=== PATIENT | female | born 1965 | race Caucasian/White ===

== ENCOUNTER 2022-07-10 07:01 | Outpatient (CLI) | payer BC, SELFPAY ==
--- NOTE | 2022-07-10 07:15 | CRLHL7_ITS ---
For Patients: As a result of the Century Cures Act, medical imaging exams and procedure reports are released immediately into your electronic medical record. You may view this report before your referring provider. If you have questions, please contact your health care provider. INDICATION: Abdominal pain TECHNIQUE: Ultrasound abdomen limited. Sonographic images of the right upper quadrant were obtained using schuler-scale and color Doppler images. COMPARISON: None FINDINGS: Liver: Normal in size and echotexture. No masses. No intrahepatic biliary dilatation. Gallbladder: No stones or sludge. Normal wall thickness. No pericholecystic fluid. Common bile duct: 4 mm. Pancreas: Normal. Right kidney: 9.8 cm. Normal echotexture and cortex. No masses, stones, or hydronephrosis. Vasculature: Proximal abdominal aorta and IVC are normal. IMPRESSION: Unremarkable right upper quadrant ultrasound. Dictated by Tres Guzman MD @ 07/10/2022 9:33:56 AM (Electronically Signed)
== END 2022-07-10 07:02 | disposition home or self-care (01) ==
LOC: US 07:03
PROVIDERS: PCP Physician Assistant; Visit Provider Physician Assistant
DX: R10.9 Unspecified abdominal pain (principal)
CPT/HCPCS: 76705

== ENCOUNTER 2023-06-01 12:31 | Emergency (ER) | payer BC, SELFPAY ==
[2023-06-01 13:01] VITALS: BP 118/75; PULSE 108; RESP 18; TEMP 36.5; O2SAT 97; BMI 18.7
--- NOTE | 2023-06-01 13:10 | CRLHL7_ITS ---
For Patients: As a result of the Century Cures Act, medical imaging exams and procedure reports are released immediately into your electronic medical record. You may view this report before your referring provider. If you have questions, please contact your health care provider. INDICATION: Right foot pain TECHNIQUE: X-ray right foot, three views COMPARISON: None available FINDINGS: The alignment is normal. Negative for acute fracture or dislocation. Overlying soft tissues within normal limits. No radiopaque foreign body is seen. IMPRESSION: Negative for acute fracture or dislocation. Dictated by Leticia Dixon MD @ 06/01/2023 2:16:20 PM (Electronically Signed)
--- NOTE | 2023-06-01 14:36 | ED_ITS ---
HPI - Extremity Injury (Lower) General Chief Complaint: Extremity Pain/Injury, Lower Stated Complaint: right foot injury Time Seen by Provider: 06/01/23 13:32 History of Present Illness HPI Narrative: Patient is a 57-year-old woman who lives locally. She was locked out of her home yesterday and kicked on the door to try to get a and using the medial aspect of her right foot. She has pain over the right mid foot medially. She has some swelling but no bruising no skin breakdown. She is having hard time walking on the foot and is having difficulty with discomfort which he rates 6/10. No other injuries. No ankle pain knee pain no toe pain. Again no breakdown of her skin. Review of Systems Status of ROS: Reports: 10 or more systems reviewed and unremarkable except as noted in History and below Exam Narrative: Exam Narrative: EXAM GENERAL: Patient appears comfortable and well. EYES: No scleral icterus. LYMPH: No supraclavicular or cervical lymphadenopathy. SKIN: Visible skin seen during exam normal or with benign process only. EXT: No dependent lower extremity pedal edema. Mild swelling of the right midfoot. Minimal pain to palpation no obvious deformities. No bruising. ABD: Soft, non tender, non distended. PSYCH: Good eye contact, speech is not pressured. Const: Vital Signs, click to edit/add: Vital Signs - 24 hr 06/01/23 13:01 Temperature 97.7 F Pulse Rate [Pulse Oximeter] 108 H Respiratory Rate 18 Blood Pressure [Ri ght Upper Arm] 118/75 Pulse Oximetry 97 Oxygen Delivery Me thod Room Air Course Course ED Course: Patient seen and examined. X-ray reviewed. Vital Signs Vital signs: Initial Vital Signs Temperature 97.7 F 06/01/23 13:01 Temperature Source Temporal Artery Scan 06/01/23 13:01 Pulse Rate 108 H 06/01/23 13:01 Respiratory Rate 18 06/01/23 13:01 Blood Pressure 118/75 06/01/23 13:01 Blood Pressure Mean 89 06/01/23 13:01 Pulse Oximetry 97 06/01/23 13:01 Oxygen Delivery Method Room Air 06/01/23 13:01 Vital Signs Temperature 97.7 F 06/01/23 13:01 Pulse Rate 108 H 06/01/23 13:01 Respiratory Rate 18 06/01/23 13:01 Blood Pressure 118/75 06/01/23 13:01 Pulse Oximetry 97 06/01/23 13:01 Oxygen Delivery Method Room Air 06/01/23 13:01 Temperature 97.7 F 06/01/23 13:01 Pulse Rate 108 H 06/01/23 13:01 Respiratory Rate 18 06/01/23 13:01 Blood Pressure 118/75 06/01/23 13:01 Pulse Oximetry 97 06/01/23 13:01 Oxygen Delivery Method Room Air 06/01/23 13:01 MDM - Extremity Injury (Lower) MDM Narrative Medical decision making narrative: Patient is a 57-year-old woman who presents after kicking door with her right foot yesterday. X-ray is negative both upon my review and radiology's review. She has finite pain in the medial aspect of her right foot. No other palpable abnormalities. This time I have offered her stiff shoe Tylenol Motrin ice and advancement of her activity as tolerated. Differential Diagnosis Differential diagnosis: Likely ankle sprain and strain, acute internal derangement of knee, fracture of toe and ankle fracture Discharge Plan Discharge Clinical Impression: Contusion Patient Disposition: Home, Self-Care Condition: Stable Instructions: Foot Contusion (ED) Additional Instructions: Stiff shoe Tylenol Motrin Ice Advancement of activity as tolerated Follow-up with your doctor in the next week if not improved. Activity Level: No Restrictions Discharge Diet: Regular Follow Up/Referrals: Mine Phillips PA [Primary Care Provider] - Stand Alone [facility] Inst[facility]
== END 2023-06-01 15:09 | disposition home or self-care (01) ==
LOC: ED 14:50
PROVIDERS: Emergency Provider Internal Medicine
DX: S90.31XA Contusion of right foot, initial encounter (principal); W22.8XXA Striking against or struck by other objects, initial encounter
CPT/HCPCS: 73630; 99283

== ENCOUNTER 2025-01-17 14:41 | Emergency (ER) | payer BC, SELFPAY ==
--- OUTSIDE RECORDS SUMMARY | 2025-01-17 14:44 | XMS_ITS | Clinical Summary ---
Author Organization [employer] [facility] [employer] Address [address] [place] [id number] Care Team Providers Care Clinical Resource Manager Name Role Phone Corey Nelson MD Unavailable [phone] Nery Louie Primary Care Provider [phone]- [phone] Allergies Active Allergy Reactions Criticality Noted Date Comments Venom-Honey Bee Anaphylaxis High 04/11/2021 Doxycycline Hives 01/19/2019 Levofloxacin Myalgia 10/17/2021 Penicillins Cardiac Arrest High almost twice Medications NebulizerIndicat ions:COPD with chronic bronchitis (HC) Nebulizer, disposable neb kit x 4, reuseable neb kit x 1, mask x 1, filters x 1. Frequency of use: daily; Medication: albuterol Length of need: prn months 1 Device 09/21/19 21 Active loperamide (Imodium A-D) 2 mg capsuleIndicatio ns:Irritable bowel syndrome with diarrhea Take 2 capsules (4mg) orally with 1st loose stool, then 1 capsule (2mg) with other loose stools. Max 16 mg in 24 hrs. 40 Capsule 2 01/07/20 24 Active EPINEPHrine (EPIPEN) 0.3 mg/0.3 mL auto-injectorInd ications:Bee sting allergy Inject 0.3 mg intramuscular one time if needed for Allergic Reaction. Contact 911 and be transported to the ER if used. 2 Each 1 01/07/20 24 Active betamethasone dipropionate 0.05 % creamIndications :Chronic eczema Apply thin layer to eczema area(s) of skin (arms, legs) twice daily as needed. Use for more severe outbreak. 45 g 1 12/02/19 25 Active betamethasone dipropionate 0.05 % ointmentIndicati ons:Chronic eczema Apply thin layer to eczema areas (arms,legs) twice daily as needed. Use for more severe outbreak. 45 g 2 12/02/19 25 Active budesonide-formo teroL (Symbicort) 80-4.5 mcg/actuation (80-4.5 mcg each actuation) inhalerIndicatio ns:COPD with chronic bronchitis (HC) Inhale 2 Puffs by mouth two times daily. 10.2 g 11 12/02/19 25 Active albuterol HFA 90 mcg/actuation inhalerIndicatio ns:COPD with chronic bronchitis (HC) Inhale 1-2 Puffs by mouth every 4 hours if needed for Shortness Of Breath or Wheezing. 1 Each 11 12/02/19 25 Active albuterol-ipratr opium (2.5-0.5 mg) in 3 mL NEBULIZATION solutionIndicati ons:COPD exacerbation (HC) Inhale 3 mL via a nebulizer 4 times daily if needed for Shortness Of Breath or Wheezing. 180 mL 5 12/02/19 25 Active alendronate (FOSAMAX) 70 mg tabletIndication s:Age-related osteoporosis without current pathological fracture Take 1 Tablet (70 mg) by mouth once a week in the morning. Take on empty stomach with full glass of water. Do not lie down for 1 hr. 12 Tablet 3 01/07/20 25 Active medication order composerIndicati ons:Chronic eczema Equal parts aquaphor and .1% triamcinolone ointment. Apply mixture to eczema areas (arms/legs) 2-3x/day. 60 g 2 11/10/19 19 025 Discontin ued(*Med complete/ Regimen complete/ Level of care change) azithromycin 250 mg tabletIndication s:COPD exacerbation (HC) Take 500 mg (2 tabs) by mouth on day 1, then 250 mg (1 tab) daily for days 2-5. 6 Tablet 12/02/19 25 025 Discontin ued(*Med complete/ Regimen complete/ Level of care change) predniSONE 20 mg tabletIndication s:COPD exacerbation (HC) Take 40 mg qd for 5 days, then 20 mg qd for 3 days, then 10 mg qd for 4 days. 15 Tablet 12/02/19 25 025 Discontin ued(*Med complete/ Regimen complete/ Level of care change) Active Problems Problem Noted Date Diagnosed Date Age-related osteoporosis wit hout current pathological fracture 12/27/2024 Pap smear for cervical cancer screening 01/19/20 24 Overview (01/19/2024): 12/2023 NIL/HPV negative. Plan: Pap/HPV due 12/2028. H. pylori infection 11/29/2021 Overview (11/29/2021): EGD 10/2021 h pylori, recommend follow up visit to discuss treatment COPD with chronic bronchitis 03/18/2019 Major depressive disorder, recurrent, mild 09/02 Anxiety disorder 09/02/2016 Tobacco use disorder 07/28/2012 Eczema 07/28/2012 LATTICE DEGENERATION-OU 03/28/2002 Resolved Problems Problem Noted Date Diagnosed Date Resolved Date Routine adult health maintenance 01/14/2017 01/06/2025 Overview (01/14/2017): Colonoscopy 12/2016 normal repeat in 10 years Osteopenia 07/11/2015 01/06/2025 Overview (07/11/2015): July 2015. Repeat bone density in 2-3 years. Headache 06/06/2015 06/29/2015 Fall 06/06/2015 06/29/2015 Arm pain, left 06/06/2015 06/29/2015 RENAL FAILURE, ACUTE NEC 10/18/200104/2015 Encounters Date Type Department Care Team Description 01/17/2025 Nurse Triage [facility] [address] [facility] [place] [address] Nery Louie PA Pain 01/17/2025 Telephone [facility] [address] [place] [address] Nery Louie PA Error-please disregard 01/06/2025 8:10 AM CDT Phone Office Visit [facility] [address] [place] [address] Nery Louie PA Results (Dexa and tx for osteoporosis); Phone Visit (No vitals taken) 12/27/2024 Telephone [facility] [address] [place] [address] Nery Louie PA Results 12/19/2024 Telephone [facility] [address] [place] [address] Nery Louie PA Results (Bone Scan 12/12) 12/12/2024 8:30 AM CDT Ancillary Procedure [facility] [address] [place] [address] 12/12/2024 Travel 12/01/2024 9:00 AM CDT Ancillary Procedure [address] [address] 12/01/2024 8:45 AM CDT Ancillary Procedure [address] [address] 12/01/2024 8:30 AM CDT Ancillary Procedure [facility] [address] [place] [address] 12/01/2024 7:50 AM CDT Office Visit [facility] [address] [place] [address] Nery Louie PA Cough (And out of breath a lot-could not refill inhalers); Leg Pain/problem (Both legs-left worse than right-numb or tingling in the mornings); Urinary Problem (Having frequency and urgency at night) 12/01/2024 Travel from Last 3 Months Immunizations Immunization Administration Dates Next Due Hepatitis B (Adult) 10/15/2012,11/03/2006,2006 Influenza, IIV4 02/04/2018 Pneumococcal Conj 20-valent (Prevnar 20) 024 Tdap 02/04/2018,01/12/2008 Family History Medical History Relation Name Comments Heart Disease Brother 1 Aleksandar Heart Disease Brother 2 Parish Alcohol/Drug Father alcohol Allergies Father Cancer Father of lung ca ncer Other Father glaucoma Unknown Maternal Grandfather Unknown Maternal Grandmother Allergies Mother Heart Disease Mother had 3 heart at [facility] Hypertension Mother Unknown Paternal Grandfather Unknown Paternal Grandmother Heart Disease Sister 1 Tasneem Cancer-breast Sister 2 Bailee in early 50's Heart Disease Sister 2 Bailee Anesthesia Problem No Family History Blood Disease No Family History Relation Name Status Comments Brother 1 Aleksandar Alive Brother 2 Parish Alive Father (Age 76) 5 yea rs ago Maternal Grandfather Maternal Grandmother Mother Alive Paternal Grandfather Paternal Grandmother Sister 1 Tasneem Alive Sister 2 Bailee Alive Social History Tobacco Use Types Packs/Day Years Used Date Smoking Tobacco: Every Day Cigarettes 0.5 42 Started: 03/05/1985 Smokeless Tobacco: Never Tobacco Cessation:Ready to Q uit: Not Asked; Counseling Given: Not Answered Alcohol Use Standard Drinks/Week Comments Not Currently 0 (1 standard drink = 0.6 oz pur e alcohol) PHQ-2 Answer Date Recorded PHQ-2 TOTAL SCORE 3 01/07/2024 Social Connections Answer Date Recorded Do you often feel lonely or isolated from those around you? 0 01/07/2024 Financial Resource Strain Answer Date R ecorded Difficulty of Paying Living Expenses 3 01/07/2024 Difficulty of Paying Living Expenses Not on file 01/07/2024 Food Insecurity Answer Date Recorded Do you worry your food will run out before you are able to buy more? 1 01/07/2024 Transportation Needs Answer Date Record ed Does lack of transportation keep you from medica l appointments? 1 01/07/2024 Does lack of transportation keep you from work, meetings or getting things that you need? 1 01/07/2024 Housing Stability Answer Date Recorded What is your housing situation today? 1 01/07/2024 Utilities Answer Date Recorded Do you have trouble paying f or utilities (for example, heat, electricity, water, phone)? 1 01/07/2024 Comments No Sex and Gender Information Value Date Recorded Sex Assigned at Not on file Legal Sex Female 5:58 AM COMIC ILLUSTRATOR Gender Identity Not on file Sexual Orientation Not on file Occupation Industry Job Start Date Job End Date Unemployed Not on file Not on file Not on file Obstetrics History Para Term AB IAB SAB Ectopic Multiple Livin g Live Births 3 3 2 1 Date Outcome GA Total Labor Labor/2nd/3rd Weight Sex Type Anes PTL Danyell A1 A5 Name Clin Term Term Last Filed Vital Signs Vital Sign Reading Time Taken Comments Blood Pressure 124/80 12/01/2024 7:53 AM CDT Pulse 99 12/01/2024 7:53 AM CDT Temperature 37 C (98.6 F) 11/21/2021 8:38 AM CDT Respiratory Rate 18 08/27/2020 7:11 PM CDT Oxygen Saturation 96% 12/01/2024 7:53 AM CDT Inhaled Oxygen Concentration - - Weight 50.3 kg (111 lb) 12/01/2024 7:53 AM CDT Height 160 cm (5' 3) 01/07/2024 7:52 AM CDT Body Mass Index 19.66 01/07/2024 7:52 AM CDT Plan of Treatment Upcoming Encounters Date Type Department Care Team (Late st Contact Info) Description 02/02/2025 8:00 AM CDT Ancillary Procedure [facility] [address] [place] [address] 02/02/2025 8:50 AM CDT Office Visit [facility] [address] [place] [address] Nery Louie PA [address] [place] [address] 02/14/2025 8:00 AM CDT Ancillary Procedure [facility] [address] [place] [address] Health Maintenance Due Date Last Done Comments Zoster (shingles) series for age 50+ (1 of 2) 2014 COVID-19 vaccine series ( - 2023- season) 2024 RSV vaccine for adults or (1 - Risk 60-74 years 1-dose series) 2024 Mammogram for age 45-75 12/22/2024 12/23/19, 04/11/2020, 11/09/2018, Additional history exists BMI (ht and wt on same day) for age 18+ 01/06/2025 01/07/2024, 05/07/2022, 11/21/2021, Additional history exists Depression screening for age 12+ 01/06/2025 01/07/2024, 01/30/2023, 01/27/2023, Additional history exists Influenza Vaccine (#1) 2025 02/04/[address] (for lung CA) ag e 50-80 02/14/2025 02/15/2024, 02/13/2023, 05/15/2022 Colonoscopy through age 75 01/14/202701/14, 01/14/2017, 01/14/2017 Tetanus booster 02/05/2028 02/04/2018, 01/12/2008 Lipids for age 45-75 01/06/2029 01/07/2024, 06/19/2020, 08/26/2016, Additional history exists Pap test for age 21-65 01/06/2029 4, 01/07/2024, 11/09/2018, Additional history exists Hepatitis B series for 19+ Completed 10/15, 11/03/2006, 09/23/2006 Hepatitis C screening for ag e 18-79 Completed 06/19/2020 HIV for age 15-65 Completed 05/07/2022 Pneumococcal series for age 50+ Completed 4 Procedures Procedure Name Priority Date/Time Associated Diagnosis Comments XR DXA BONE DENSITY 2 SITES AXIAL Routine 12/12/2024 8:51 AM CDT Osteopenia of lumbar spine URINALYSIS MACROSCOPIC - [facility] ONLY POC DIP ([facility]) Routine 12/01/2024 9:00 AM CDT Nocturia OAB (overactive bladder) URINALYSIS MICROSCOPIC Routine 12/01/2024 8:58 AM CDT Nocturia OAB (overactive bladder) URINE CULTURE Routine 12/01/2024 8:58 AM CDT Nocturia OAB (overactive bladder) XR SPINE LUMBAR 3 VIEWS Routine 12/01/2024 8:47 AM CDT Lumbar pain XR HIP 1 VIEW W PELVIS RIGHT Routine 12/01/2024 8:47 AM CDT Hip pain, right XR CHEST 2 VIEWS PA AND LATERAL Routine 12/01/2024 8:47 [address] CDT [address] CHEST SCREENING LOW DOSE WO CONTRAST Routine 02/15/2024 10:31 AM CDT Encounter for screening for lung cancer Smoker LIPID PANEL W REFLEX MEASURED LDL Routine 01/07/2024 8:42 AM CDT Screening cholesterol level PROGRAM OFFICER THIN PREP PAP SCREEN IMAGED Routine 01/07/2024 8:19 AM CDT Screening for malignant neoplasm of cervix XR MAMMO BEVERLY BILAT SCREEN Routine 12/23/2023 4:24 PM CDT Routine adult health maintenance ANTI HIV 1/2 Routine 05/07/2022 10:10 AM COMIC ILLUSTRATOR Weight loss ANTI HCV Routine 06/19/2020 9:08 AM COMIC ILLUSTRATOR Need for hepatitis C screening test COLONOSCOPY 01/14/2017 10:19 AM CDT from Last 3 Months or Most Recently Relevant to Health Maintenance Results * (ABNORMAL) XR DXA BONE DENSITY 2 SITES AXIAL (12/12/2024 8:51 AM CDT) Anatomical Region Laterality Modality Spine, HIPS, HIPL, HIPR Other Impressions 12/21/2024 10:59 AM CDT Osteoporosis. RECOMMENDATIONS: The National Osteoporosis Foundation recommends pharmacologic treatment for patients with T-scores of -2.5 or less, patients with prior history of fragility fractures, or patients with 10-year probability of greater than 3% at hips or greater than 20% of suffering major osteoporotic fractures. Recommend continued optimization of calcium and vitamin D intake through dietary means and/or supplementation and regular exercise. Consider pharmacologic therapy for osteoporosis. Follow-up bone density reading in 2 years if therapy initiated to assess therapeutic efficacy. Edwgie Park PA-C [employer] [facility] 12/21/2024 Narrative 12/21/2024 10:59 AM CDT For Patients: Results are automatically released to your [employer] ([employer]) account once available, in compliance with federal regulations. This means that you may see your results before your provider has had a chance to review them. Please allow 2-3 business days for your provider to comment on the results. XR DXA Bone Mineral Density (BMD) EXAM LOCATION: [facility] [address] [facility] [address] PATIENT NAME: Katerin Gomes DATE OF : 1965 EXAM DATE: 12/12/2024 REQUESTING PROVIDER: Nery Louie PA GENDER AT : female HEIGHT: 5' 3 (01/07/2024) WEIGHT: 111 lb (12/01/2024) MENOPAUSAL STATUS: Postmenopausal RACE/ETHNICITY: White RISK FACTORS: Family History of Osteoporosis, Smoking (current), Smoking (prior), Steroid Medication (non-topical), Weight < 127 lbs., and White Race CURRENT MEDICATION FOR BONE LOSS: NONE INDICATION: Osteopenia of lumbar spine COMPARISON DATE(S): 2016 DXA scans are compared to prior studies for a patient only when the two (or more) studies were performed on the same scanner. It is not possible to compare data generated on one scanner to data from another because there are not standards in DXA equipment. This applies even if the two scanners are made by the same fast food worker. PROCEDURE: Dual-energy x-ray absorptiometry performed with routine technique. Reporting is completed in the form of a T-score. The T-score represents the standard deviation from peak bone mass based on young healthy adult. A Z-score is used for diagnosis in premenopausal women, and for men under the age of 50. FINDINGS: RESULT LUMBAR SPINE L1 - L4 BMD: 0.893 g/cm2 T-Score: - 2.4 Z-Score: - 0.7 Change from prior in 2016: Decrease 14.0%. RESULTS FEMUR Left femoral neck BMD: 0.756 g/cm2 T-Score: - 2.0 Z-Score: - 0.5 Change from prior in 2016: Decrease 10.6%. Right femoral neck BMD: 0.627 g/cm2 T-Score: - 3.0 Z-Score: - 1.4 Change from prior in 2016: Decrease 12.4%. Left hip BMD: 0.703 g/cm2 T-Score: - 2.4 Z-Score: - 1.1 Change from prior in 2016: Decrease 16.9%. Right hip BMD: 0.646 g/cm2 T-Score: - 2.9 Z-Score: - 1.6 Change from prior in 2016: Decrease 19.6%. WHO criteria: Normal: T-score at or above -1 SD Osteopenia: T-score between -1.1 and -2.4 SD Osteoporosis: T-score at or below -2.5 SD FRAX RISK CALCULATION (USED FOR OSTEOPENIA ONLY): 10-year probability of major osteoporotic fracture: 14.4%. 10-year probability of hip fracture: 6.1%. Nery GAVIN DEXA Final Resu lt * (ABNORMAL) POCT Urinalysis Dipstick Only [[id number]] (12/01/2024 9:00 AM CDT) PH 6.0 5.0 - 8.0 [facility] SPECIFIC GRAVITY 1.010 1.001 - 1.035 [facility] GLUCOSE NEGATIVE NEGATIVE [facility] BILIRUBIN NEGATIVE NEGATIVE [facility] KETONES NEGATIVE NEGATIVE [facility] OCCULT BLOOD TRACE(A) NEGATIVE [facility] PROTEIN NEGATIVE NEGATIVE [facility] NITRITE NEGATIVE NEGATIVE [facility] LEUKOCYTE ESTERASE 1+(A) NEGATIVE [facility] Urine URINE SPECIMEN / Unknown 12/01/2024 9:00 AM CDT 12/01/2024 9:01 AM CDT Nery GAVIN URINE Final Resu lt [facility] [address] [place] [address], [facility] [address] [place] [address] * (ABNORMAL) URINALYSIS MICROSCOPIC [77925.1] - routine (12/01/2024 8:58 AM CDT) RBC 0-2 0-2, None Seen /HPF 12/01/2024 2:42 PM CDT [facility] WBC 6-10(A) 0-2, 3-5, None Seen /HPF 12/01/2024 2:42 PM CDT [facility] BACTERIA None Seen None Seen, Rare, Few Bacteria/ HPF 12/01/2024 2:42 PM CDT [facility] EPITHELIAL CELLS None Seen None Seen, Few Epi/HPF 12/01/2024 2:42 PM CDT [facility] HYALINE CASTS 0-2 0-2, 3-5 /LPF 12/01/2024 2:42 PM CDT [facility] Urine URINE SPECIMEN / Unknown Non-Blood / Unknown 12/01/2024 8:58 AM CDT 12/01/2024 8:58 AM CDT Nery GAVIN URINE Final Resu lt Performing Organization Address City/[facility]/ZIP Co de Phone Number [facility] [address] [place] [address], [place] * URINE CULTURE [[id number]] (12/01/2024 8:58 AM CDT) CULTURE <10,000 CFU/mL multiple organisms 12/02/2024 3:04 PM CDT [facility] Urine URINE SPECIMEN / Unknown Non-Blood / Unknown 12/01/2024 8:58 AM CDT 12/01/2024 8:58 AM CDT Nery GAVIN MICROBIOLOGY Final Resu lt [facility] [address] [place] [address], [place] * XR SPINE LUMBAR 3 VIEWS (12/01/2024 8:47 AM CDT) Anatomical Region Laterality Modality LUMBAR SPINE Computed Radiogr aphy 12/01/2024 1:04 PM CDT Impressions 12/01/2024 1:04 PM CDT 1. No acute osseous injuries or abnormalities are noted. Dictated by Ty Rodriguez MD @ 12/01/2024 1:04:11 PM Dictated by: Ty Rodriguez MD @ 12/01/2024 13:04:16 (Electronically Signed) Narrative 12/01/2024 1:04 PM CDT For Patients: As a result of the Cures Act, medical imaging exams and procedure reports are released immediately into your electronic medical record. You may view this report before your referring provider. If you have questions, please contact your health care provider. INDICATION: Lumbar pain TECHNIQUE: Lumbar spine radiograph 3 views COMPARISON: 01/27/2023 FINDINGS: Bone: No acute fractures or aggressive bone lesions are identified. Alignment is normal. Severe diffuse osteopenia is noted. Disc: The disc spaces are unremarkable in appearance. The facet joints are unremarkable. Soft tissue: Unremarkable. No radiopaque foreign bodies are seen. Procedure Note Ty Rodriguez MD - 12/01/2024 For Patients: As a result of the Cures Act, medical imagingexams and procedure reports are released immediately into your electronicmedical record. You may view this report before your referring provider.If you have questions, please contact your health care provider. INDICATION: Lumbar pain TECHNIQUE: Lumbar spine radiograph 3 views COMPARISON: 01/27/2023 FINDINGS: Bone: No acute fractures or aggressive bone lesions are identified.Alignment is normal. Severe diffuse osteopenia is noted. Disc: The disc spaces are unremarkable in appearance. The facet joints areunremarkable. Soft tissue: Unremarkable. No radiopaque foreign bodies are seen. IMPRESSION: 1. No acute osseous injuries or abnormalities are noted. Dictated by Ty Rodriguez MD @ 12/01/2024 1:04:11 PM Dictated by: Ty Rodriguez MD @ 12/01/2024 13:04:16 (Electronically Signed) us Nery GAVIN GENERAL [facility]AGING Final Resu lt * XR HIP 1 VIEW W PELVIS RIGHT (12/01/2024 8:47 AM CDT) Anatomical Region Laterality Modality HIPS, HIPR, Pelvis Computed Radi ography 12/01/2024 1:03 PM CDT Impressions 12/01/2024 1:03 PM CDT 1. No acute osseous injuries or abnormalities are noted. Dictated by Ty Rodriguez MD @ 12/01/2024 1:03:04 PM Dictated by: Ty Rodriguez MD @ 12/01/2024 13:03:07 (Electronically Signed) Narrative 12/01/2024 1:03 PM CDT For Patients: As a result of the Cures Act, medical imaging exams and procedure reports are released immediately into your electronic medical record. You may view this report before your referring provider. If you have questions, please contact your health care provider. INDICATION: Hip pain TECHNIQUE: Pelvis radiograph, Hip radiograph 2 views right COMPARISON: None FINDINGS: Bone: No acute fractures or aggressive bone lesions are identified. Moderate diffuse osteopenia is present. Joint: Mild to moderate left hip osteoarthritis is present. The right hip is unremarkable. The visualized sacroiliac joints are unremarkable in appearance. The pubic symphysis is normal in appearance. Soft tissue: Unremarkable. No radiopaque foreign bodies are seen. Procedure Note Ty Rodriguez MD - 12/01/2024 For Patients: As a result of the Cures Act, medical imagingexams and procedure reports are released immediately into your electronicmedical record. You may view this report before your referring provider.If you have questions, please contact your health care provider. INDICATION: Hip pain TECHNIQUE: Pelvis radiograph, Hip radiograph 2 views right COMPARISON: None FINDINGS: Bone: No acute fractures or aggressive bone lesions are identified.Moderate diffuse osteopenia is present. Joint: Mild to moderate left hip osteoarthritis is present. The right hipis unremarkable. The visualized sacroiliac joints are unremarkable inappearance. The pubic symphysis is normal in appearance. Soft tissue: Unremarkable. No radiopaque foreign bodies are seen. IMPRESSION: 1. No acute osseous injuries or abnormalities are noted. Dictated by Ty Rodriguez MD @ 12/01/2024 1:03:04 PM Dictated by: Ty Rodriguez MD @ 12/01/2024 13:03:07 (Electronically Signed) us Nery Mina Liban PA GENERAL IMAGING Final Resu lt * XR CHEST 2 VIEWS PA AND LATERAL (12/01/2024 8:47 AM CDT) Anatomical Region Laterality Modality CHEST, THORAX, Lung, HEART Compu fabiano Radiography 12/01/2024 1:02 PM CDT Impressions 12/01/2024 1:02 PM CDT 1. Bilateral pulmonary hyperinflation and lucency is noted. This is suggestive of moderate to severe, stable pulmonary emphysema. Dictated by Ty Rodriguez MD @ 12/01/2024 1:02:32 PM Dictated by: Ty Rodriguez MD @ 12/01/2024 13:02:37 (Electronically Signed) Narrative 12/01/2024 1:02 PM CDT For Patients: As a result of the Cures Act, medical imaging exams and procedure reports are released immediately into your electronic medical record. You may view this report before your referring provider. If you have questions, please contact your health care provider. INDICATION: Chronic cough TECHNIQUE: Chest radiograph 2 views COMPARISON: 10/17/2021 FINDINGS: Mediastinum: The mediastinum is normal in appearance. The heart silhouette is normal in size and morphology. Lung: Bilateral pulmonary hyperinflation and lucency is noted. No sign of pleural effusion seen. No pneumothorax is identified. Bone and Soft tissue: Unremarkable for age. Procedure Note Ty Rodriguez MD - 12/01/2024 For Patients: As a result of the Cures Act, medical imagingexams and procedure reports are released immediately into your electronicmedical record. You may view this report before your referring provider.If you have questions, please contact your health care provider. INDICATION: Chronic cough TECHNIQUE: Chest radiograph 2 views COMPARISON: 10/17/2021 FINDINGS: Mediastinum: The mediastinum is normal in appearance. The heart silhouetteis normal in size and morphology. Lung: Bilateral pulmonary hyperinflation and lucency is noted. No sign ofpleural effusion seen. No pneumothorax is identified. Bone and Soft tissue: Unremarkable for age. IMPRESSION: 1. Bilateral pulmonary hyperinflation and lucency is noted. This issuggestive of moderate to severe, stable pulmonary emphysema. Dictated by Ty Rodriguez MD @ 12/01/2024 1:02:32 PM Dictated by: Ty Rodriguez MD @ 12/01/2024 13:02:37 (Electronically Signed) us Nery GAVIN [facility] Final Resu lt * CT CHEST SCREENING LOW DOSE WO CONTRAST (02/15/2024 10:31 AM CDT) Anatomical Region Laterality Modality Computed Tomogra phy Impressions 02/15/2024 4:00 PM CDT Stable small right apical pulmonary nodule. Lung-RADS Category 2: Benign appearance or behavior. Continue annual screening with low-dose chest CT in 12 months. Please note that all CT scans at this facility use dose modulation, iterative reconstruction and/or weight-based dosing when appropriate to reduce radiation dose to as low as reasonably achievable. Dictated by: Adria Grimes MD @02/15/2024 2:37:36 PM / eder Neuroradiologist Narrative 02/15/2024 4:00 PM CDT For Patients: As a result of the 21st Century Cures Act, medical imaging exams and procedure reports are released immediately into your electronic medical record. You may view this report before your referring provider. If you have questions, please contact your health care provider. CT CHEST SCREENING LOW-DOSE WITHOUT CONTRAST, 02/15/2024 Indication Lung cancer screening. TECHNIQUE: Noncontrast CT images of the chest. COMPARISON: CT chest 02/13/2023. FINDINGS: Mild biapical scarring. Mild paraseptal emphysema in the lung apices. Stable 3 mm solid right apical nodule (series 5 image 21). No new or enlarging pulmonary nodules. No focal consolidation, pleural effusion, or pneumothorax. The heart size is normal. No pericardial effusion. Coronary artery atherosclerotic calcifications. No mediastinal or hilar lymphadenopathy. Limited images through the upper abdomen are unremarkable. No aggressive osseous lesions. us Nery GAVIN CT Final Resu lt * (ABNORMAL) LIPID PANEL W REFLEX MEASURED LDL (01/07/2024 8:42 AM CDT) CHOLESTEROL,TOTAL 216(H) 100 - 199 mg/dL 01/07/2024 7:17 PM CDT [facility] Comment: Cholesterol, Total Reference Ranges Desirable <200 mg/dL Borderline 200-239 mg/dL High >=240 mg/dL TRIGLYCERIDES 87 <150 mg/dL 01/07/2024 7:17 PM CDT [facility] HDL CHOLESTEROL 67 >40 mg/dL 7:17 PM CDT [facility] NON-HDL CHOLESTEROL 149(H) <145 mg/dl 01/07/2024 7:17 PM CDT [facility] CHOL/HDL RATIO 3.22 <4.50 01/07/2024 7:17 PM CDT [facility] LDL CHOLESTEROL 132(H) <=130 mg/dL 01/07/2024 7:17 PM CDT [facility] VLDL CHOLESTEROL 17 <=30 mg/dL 01/07/2024 7:17 PM CDT [facility] PROVIDER ORDERED STATUS RANDOM 01/07/2024 7:17 PM CDT [facility] Blood BLOOD SPECIMEN / Unknown Venipuncture / Unknown 01/07/2024 8:42 AM CDT 01/07/2024 8:44 AM CDT us Nery GAVIN CHEMISTRY Final Resu lt [facility] [address] [place] [id number], * PROGRAM OFFICER THIN PREP PAP SCREEN IMAGED (01/07/2024 8:19 AM CDT) Case Report Gynecologic Cytology Report Case: [id number] Authorizing Provider: Nery Louie PA Collected: 01/07/2024818 Ordering Location: [facility] Received: 01/07/2024 0846 Clinic First Screen: Krystian Thomas Specimen: PROGRAM OFFICER ThinPrep Vial Screening, Cervical 01/18/2024 1:52 PM CDT [facility] INTERPRETATION/ RESULT NEGATIVE FOR INTRAEPITHELIAL LESION OR MALIGNANCY (NIL) (none) 01/18/2024 1:52 PM CDT [facility] at 1351 CDT SPECIMEN ADEQUACY Satisfactory for evaluation Endocervical component present 01/18/2024 1:52 PM CDT [facility] HPV REQUEST HPV and PAP 01/18/2024 1:52 PM CDT [facility] Date of LMP unknown 01/18/2024 1:52 PM CDT [facility] Last Pap Date 11/09/18 01/18/2024 1:52 PM CDT [facility] Last Pap Result NIL 1:52 PM CDT [facility] Abnormal Pap or Spencer Bx in last 5 years No 01/18/2024 1:52 PM CDT [facility] Menstrual Status Postmenopausal 01/18/2024 1:52 PM CDT [facility] Spencer Bx Done Today No 01/18/2024 1:52 PM CDT [facility] Additional Information None given 01/18/2024 1:52 PM CDT [facility] Comment: Cytology is screened at [facility] - [address], [place] [address] and [facility] - [address], [place] [address] and [facility] - [address] [place] [address] Interpreted at [facility] - [address] [place] [id number] Automated Review Successful 01/18/2024 1:52 PM CDT [facility] Comment:Specimen processed s uccessfully by automated recordist device, ThinPrep Imaging System, [employer] ANCILLARY TESTING PROGRAM OFFICER HPV Ordered, Please see separate report 01/18/2024 1:52 PM CDT [facility] Note The pap test is a screening technique, not a diagnostic procedure. It is used primarily to screen for squamous cancers and precursor lesions. Published studies have shown that it is subject to both false negative and false positive results. The pap test should not be used as the sole means to diagnose or exclude pre-malignant and malignant lesions. 01/18/2024 1:52 PM CDT [facility] Other (Cervical) Non-Blood / Unknown 01/07/2024 8:19 AM CDT 01/07/2024 8:46 AM CDT Nery GAVIN PATHOLOGY/CYTOLOGY Final R esult [facility] [address] [place] [address], [place] * XR MAMMO BEVERLY BILAT SCREEN (12/23/2023 4:24 PM CDT) Anatomical Region Laterality Modality BREASTS, Breast Left, Breast Right Bilateral Mammography Impressions 12/23/2023 4:36 PM CDT There is no radiographic evidence for malignancy. Recommend annual mammograms. MAMMOGRAM ASSESSMENT: ACR 1 Negative PATIENTS: You will also receive a letter with your examination results in an easy to read format. If you have questions about your results, please contact your referring provider. Narrative 12/23/2023 4:36 PM CDT For Patients: As a result of the Century Cures Act, medical imaging exams and procedure reports are released immediately into your electronic medical record. You may view this report before your referring provider. If you have questions, please contact your health care provider. XR MAMMO BEVERLY BILAT SCREEN [[id number]] CLINICAL HISTORY: This is an asymptomatic 58 y.o. patient. INDICATION FOR EXAM: Mammogram Screening. TECHNIQUE: CC & MLO views were obtained. This study was evaluated with the assistance of Computer-Aided Detection. Breast Tomosynthesis was used in interpretation. COMPARISON FILM: Yes 04/11/20 [employer] 11/09/18 [employer] FINDINGS: The breasts are heterogeneously dense, which may obscure small masses. There are no dominant masses, suspicious micro calcifications or areas of architectural distortion. us Nery GAVIN MAMMO Final Resu lt * ANTI HIV 1/2 (05/07/2022 10:10 AM COMIC ILLUSTRATOR) HIV-1/HIV-2 ANTIBODY Non-Reacti ve Non-Reacti ve 05/09/2022 9:01 PM COMIC ILLUSTRATOR [facility] Comment:HIV-1 p24 and HIV-1/ HIV-2 Ab not detected. Blood BLOOD SPECIMEN / Unknown Venipuncture / Unknown 05/07/2022 10:10 AM COMIC ILLUSTRATOR 05/07/2022 10:10 AM COMIC ILLUSTRATOR us Mine GAVIN SEND OUTS Final Resu lt [facility] [address] [place] [address], [place] * ANTI HCV (06/19/2020 9:08 AM COMIC ILLUSTRATOR) Pathologist [facility] HEPATITIS C ANTIBODY Non-React vera Non-React vera 06/19/2020 6:12 PM COMIC ILLUSTRATOR [facility] Comment:Antibodies to HCV no t detected; does not exclude the possibility of exposure to HCV. Blood BLOOD SPECIMEN / Unknown Venipuncture / Unknown 06/19/2020 9:08 AM COMIC ILLUSTRATOR 06/19/2020 9:11 AM COMIC ILLUSTRATOR us Mine GAVIN SEND OUTS Final Resu lt [facility] [address] [place] [address], [place] * COLONOSCOPY (01/14/2017 10:19 AM CDT) 01/14/2017 10:1 9 AM CDT Narrative Transcriptions Scott Dougherty MD - 01/14/2017 11:57 AM CDT Patient Name: Katerin Gomes Procedure Date: 01/14/2017 Gender: Female Date of : 1965 Admit Type: Outpatient Procedure: Colonoscopy Proceduralist: Scott Dougherty MD , Xena Arnold (Nurse) Indications/Pre-Op Diagnosis: Screening for colorectal malignant neoplasm, This is the patient's first colonoscopy Medications: Fentanyl 200 micrograms IV, Midazolam 6 mgIV, The level of sedation administered wasmoderate Procedure Description: The patient had risks, benefits and alternatives explained to andgave informed consent. The patient had a stable cardiopulmonary status and judged an adequate candidate for conscious sedation. The [id number] was passed through the anus and advanced tothe terminal ileum. The colonoscopy was unusually difficult due to a tortuous colon. The patient tolerated the procedure well. The qualityof the bowel preparation was excellent. The terminal ileum, ileocecal valve, appendiceal orifice, and rectum were photographed. Complications: No immediate complications. Estimated Blood Loss & Specimen: Estimated blood loss: none. Specimen collected - None Findings: The perianal and digital rectal examinations were normal. A few small-mouthed diverticula were found in the sigmoid colon. The terminal ileum appeared normal. The exam was otherwise without abnormality on direct and retroflexion views. The colon (entire examined portion) was significantly tortuous. Impressions/Post-Op Diagnosis: - Diverticulosis in the sigmoid colon. - The examined portion of the ileum was normal. - The examination was otherwise normal on direct and retroflexionviews. - Tortuous colon. - No specimens collected. Recommendation: - Patient has a contact number available for emergencies. The signsand symptoms of potential delayed complications were discussed with the patient. Return to normal activities tomorrow. Written discharge instructions were provided to the patient. - Resume previous diet. - Continue present medications. - Repeat colonoscopy in 10 years for screening purposes. - Perform an upper GI endoscopy if symptoms persist. Moderate Sedation: Moderate (conscious) sedation was administered by the endoscopy nurse and supervised by the endoscopist. The following parameters were monitored: oxygen saturation, heart rate, respiratory rate, blood pressure, adequacy of pulmonary ventilation and reponse to care. [facility] flowsheets and nursing notes for moderate sedation details. Total physician intraservice time was 26 minutes. Scott Dougherty MD 01/14/2017 11:57:11 AM This report has been signed electronically. Note Initiated On: 01/14/2017 10:19 AM Procedure Code(s): --- Professional --- 49729, Colonoscopy, flexible; diagnostic, including collection of specimen(s) bybrushing or washing, when performed (separateprocedure) Diagnosis Code(s): --- Professional --- Z12.11, Encounter for screening formalignant neoplasm of colon K57.30, Diverticulosis of large intestine without perforation or abscess withoutbleeding Q43.8, Other specified congenitalmalformations of intestine CPT copyright 2016 [employer]. All rights reserved. The codes documented in this report are preliminary and upon dress marker reviewmay be revised to meet current compliance requirements. Scope In: 11:25:04 AM Scope Withdrawal Time 0 hours 10 minutes 55 seconds Scope Out: 11:51:40 AM Scott Dougherty MD PROCEDURE ORD Final Res ult from Last 3 Months or Most Recently Relevant to Health Maintenance Insurance [facility] BLUE ADVANTAGE [employer] [facility] [place] Advance Directives * Full Code (Latest Code Status on File) Date Activated Date Inactivated Comments 06/06/2015 2:15 PM 06/07/2015 11:55 AM Care Teams Clinical Resource Manager Relationship Specialty Start Date End Date Nery Louie PA [address] [place] [address] PCP - General Physician Senior Infrastructure Engineer 01/27/23 Corey Nelson MD Dermatology Dermatology 09/27/12
--- OUTSIDE RECORDS SUMMARY | 2025-01-17 14:45 | XMS_ITS | Clinical Summary ---
Author Organization [facility] Address [address] [place] [id number] Care Team Providers Care Liner Machine Operator Helper Name Role Phone System, Provider Not In Primary Care Provider Un available Allergies No known active allergies Medications No known medications Social History Tobacco Use Types Packs/Day Years Used Date Smoking Tobacco: Never Assessed Comments Unknown Sex and Gender Information Value Date Recorded Sex Assigned at Not on file Legal Sex Female 3:15 AM BUSINESS ETHICS PROFESSOR Gender Identity Not on file Sexual Orientation Not on file Last Filed Vital Signs Vital Sign Reading Time Taken Comments Blood Pressure 133/93 04/06/2019 9:32 AM BUSINESS ETHICS PROFESSOR Pulse 94 04/06/2019 9:32 AM BUSINESS ETHICS PROFESSOR Temperature 36.8 C (98.3 F) 04/06/2019 10:42 AM BUSINESS ETHICS PROFESSOR Respiratory Rate 18 04/06/2019 9:32 AM BUSINESS ETHICS PROFESSOR Oxygen Saturation 98% 04/06/2019 9:32 AM BUSINESS ETHICS PROFESSOR Inhaled Oxygen Concentration - - Weight - - Height - - Body Mass Index - - Plan of Treatment Not on file Insurance [facility] [employer] Care Teams Liner Machine Operator Helper Relationship Specialty Start Date End Date System, Provider Not In PCP - General Clinic 04/06/19
[2025-01-17 15:16] VITALS: BP 136/89; PULSE 110; RESP 20; TEMP 36.3; O2SAT 97; BMI 20.1
--- NOTE | 2025-01-17 15:31 | ED.GENADULT ---
HPI - General Adult General Chief complaint: Unspecified Complaint, Adult Stated complaint: Reaction to med.- weak, burning feeling, nausous Time Seen by Provider: 01/17/25 14:47 History of Present Illness HPI narrative: Patient presents to the emergency department complaining of full body burning feeling. Patient states this started last week sometime. Patient started taking Fosamax and feels like these symptoms are related to that. Patient also endorses a headache. 59-year-old woman presenting to the emergency department with concern of possible medication reaction. She has recently been initiated on Fosamax. Has now had 2 dosings the last was about 3 days ago. Also about 3 days ago started to feel generally unwell. She has developed body aches. Not specifically joint aches but all of her joints do hurt. Sees a little short of breath. She does smoke. She has significant headache. Her face lester and is sore. On exam I note some cobblestoning and she does endorse fall and spring allergies but wonders if maybe she is starting to come into her fall allergies. Not noted to have abdominal pain. She has had nausea. Did have a loose stool this morning. No fever measured. She has been also lightheaded when she goes to stand or walk. Asked about exposure to illness particularly COVID but she says that she does not go anywhere. Related Data Home Medications ?Medication ?Instructions ?Recorded ?Confirmed albuterol sulfate 90 mcg/actuation 1 - 2 puff inhalation Q4H PRN 01/17/25 01/17/25 aerosol inhaler (Ventolin HFA) wheezing alendronate 70 mg tablet 70 mg PO 01/17/25 budesonide-formoterol HFA 80 2 puff inhalation BID 01/17/25 01/17/25 mcg-4.5 mcg/actuation aerosol inhaler (Symbicort) ipratropium 0.5 mg-albuterol 3 mg 3 ml inhalation QID PRN wheezing 01/17/25 01/17/25 (2.5 mg base)/3 mL nebulization soln Allergies Allergy/AdvReac Type Severity Reaction Status Date / Time Penicillins Allergy Severe Verified 01/17/25 15:22 Review of Systems Status of ROS: Reports: 6 or more systems reviewed and unremarkable except as noted in History and below Exam Narrative: Exam Narrative: Pleasant. Looks like she is a little tired. She is breathing easily. Lungs with trace and expiratory crepitus in bilateral mid to lower lung calloway. Heart is tachycardic in a regular rhythm. No murmur rub or gallop identified. Abdomen is flat soft and tender in the epigastrium. She flinches with percussion to her flanks but is not exactly with pain. Oropharynx is moist. She does have some cobblestoning. Face is without erythema. I do not appreciate any rashes. Does have some pallor almost like vitiligo toward the distal fingers. Is well-perfused peripherally. No lower extremity edema. No specific joint swelling or erythema. Const: Vital Signs, click to edit/add: Vital Signs - 24 hr 01/17/25 15:16 Temperature 97.4 F L Pulse Rate [Right Pulse Oximeter] 110 H Respiratory Rate 20 Blood Pressure [Ri ght Upper Arm] 136/89 Pulse Oximetry 97 Oxygen Delivery Me thod Room Air Documenting provider has reviewed patient's vital signs: yes Course Vital Signs Vital signs: Initial Vital Signs Temperature 97.4 F L 01/17/25 15:16 Temperature Source Temporal Artery Scan 01/17/25 15:16 Pulse Rate 110 H 01/17/25 15:16 Pulse Rhythm Regular 01/17/25 15:16 Pulse Strength 3+ Normal 01/17/25 15:16 Respiratory Rate 20 01/17/25 15:16 Blood Pressure 136/89 01/17/25 15:16 Blood Pressure Mean 104 01/17/25 15:16 Blood Pressure Position Sitting 01/17/25 15:16 Pulse Oximetry 97 01/17/25 15:16 Oxygen Delivery Method Room Air 01/17/25 15:16 Vital Signs Temperature 97.4 F L 01/17/25 15:16 Pulse Rate 110 H 01/17/25 15:16 Respiratory Rate 20 01/17/25 15:16 Blood Pressure 136/89 01/17/25 15:16 Pulse Oximetry 97 01/17/25 15:16 Oxygen Delivery Method Room Air 01/17/25 15:16 Temperature 97.4 F L 01/17/25 15:16 Pulse Rate 110 H 01/17/25 15:16 Respiratory Rate 20 01/17/25 15:16 Blood Pressure 136/89 01/17/25 15:16 Pulse Oximetry 97 01/17/25 15:16 Oxygen Delivery Method Room Air 01/17/25 15:16 Medical Decision Making MDM Narrative Medical decision making narrative: I suspect more of an infectious etiology to her symptoms. Possibly COVID? Could be also anemic with other infection. Will check renal function as well and liver as has been initiated on new medication. Symptoms could be related to Fosamax. Not sure that electrolyte abnormalities can explain all of her symptoms here today. Look for further indication of infection including urine. Will do an x-ray of her chest especially as a smoker. She is concerned that is dehydrated. Is tachycardic. Might benefit from IV fluids and will initiate these as well. Will be handing off at change of shift Medical Records Medical records reviewed: Yes I reviewed the patient's medical records Discharge Plan Discharge Prescriptions: No Action ipratropium-albuterol 0.5 mg-3 mg(2.5 mg base)/3 mL solution for nebulization 3 ml INHALATION QID PRN (Reason: wheezing) alendronate 70 mg tablet 70 mg PO albuterol sulfate [Ventolin HFA] 90 mcg/actuation HFA aerosol inhaler 1 - 2 puff INHALATION Q4H PRN (Reason: wheezing) budesonide-formoterol [Symbicort] 80-4.5 mcg/actuation HFA aerosol inhaler 2 puff INHALATION BID Follow Up/Referrals: Provider,Not a Local [Non-Staff, Family Practice]
--- NOTE | 2025-01-17 15:51 | CRLHL7_ITS ---
For Patients: As a result of the Cures Act, medical imaging exams and procedure reports are released immediately into your electronic medical record. You may view this report before your referring provider. If you have questions, please contact your health care provider. INDICATION: Dyspnea. TECHNIQUE: Chest 1 view. COMPARISON: March 05, 2020. FINDINGS: Cardiovascular and mediastinum: Cardiomediastinal silhouette is within normal limits. Lungs and pleural spaces: Mild hyperinflation of the lungs, but the lungs are clear. No evidence of pleural effusion. No pneumothorax identified. Bones and soft tissues: Unremarkable. IMPRESSION: No acute cardiopulmonary process identified. No significant interval change. Dictated by Parvez Guzman MD @ 01/17/2025 4:26:37 PM (Electronically Signed)
[2025-01-17 16:40] LABS: Hematocrit 43.4 % (33.0-51.0); Hemoglobin* 14.1 gm/dL (12.0-16.0); Mean Corpuscular HGB Conc 33 gm/dL (32-36); Mean Corpuscular Hemoglobin 30 pg (26-34); Mean Corpuscular Volume 94 fL (80-100); RDW Coefficient of Variation % 12.5 % (11.5-15.5); Red Blood Count 4.64 m/uL (4.00-5.20); White Blood Count* 8.72 K/uL (4.50-11.00)
[2025-01-17 16:41] LABS: Immature Granulocytes Abs Auto 0.01 K/uL (0.00-0.30); Immature Granulocytes Pct Auto 0.1 %; Lymphocytes Absolute Auto 1.99 K/uL (0.90-2.90); Slide Review Reflex No
[2025-01-17 16:41] LABS: Appearance Urine Clear (Clear)
[2025-01-17 16:47] LABS: Albumin* 4.8 g/dL (3.3-5.0); Chloride* 100 mmol/L (96-114); Sodium* 135 mmol/L (135-149)
[2025-01-17 16:48] LABS: Potassium* 4.5 mmol/L (3.6-5.1)
[2025-01-17 16:50] LABS: Alanine Aminotransferase* 13 U/L (4-35); Alkaline Phosphatase* 49 U/L (40-150); Anion Gap 6 mEq/L (7-15); Aspartate Amino Transferase* 27 U/L (12-35); Bilirubin Direct* 0.3 mg/dL (0.0-0.5); Bilirubin Total* 0.5 mg/dL (0.1-1.5); Blood Urea Nitrogen* 17 mg/dL (7-30); Carbon Dioxide* 29 mmol/L (20-32); Creatinine* 0.9 mg/dL (0.5-1.5); Est. Creatinine Clearance* 52.36; Estimated Glomerular Filt Rate 73 ml/min; Total Protein* 8.3 g/dL (6.0-8.3)
[2025-01-17 16:51] LABS: Calcium* 10.0 mg/dL (8.4-10.6); Glucose* 99 mg/dL (60-115)
[2025-01-17 17:14] LABS: PCR FLU A Negative PCR FLU A (Negative); PCR FLU B Negative PCR FLU B (Negative); PCR RSV Negative PCR RSV (Negative); SARS PCR* Negative SARS-CoV-2 (Negative)
== END 2025-01-17 17:29 | disposition home or self-care (01) ==
PROVIDERS: Emergency Provider Family Medicine; PCP Physician Assistant
DX: M79.18 Myalgia, other site (principal); T45.8X5A Adverse effect of other primarily systemic and hematological agents, initial encounter
CPT/HCPCS: 36415; 71045; 80048; 80076; 81001; 83690; 85025; 86140; 87086; 87631; 99283; 99284; J7030